=== PATIENT | female | born 2000 | race Caucasian/White ===

== ENCOUNTER 2023-12-27 02:05 | Emergency (ER) | payer OTHER ==
[2023-12-27] MEDS: Lidocaine 1% 50 ML MDV INJECT ONE (03:07)
[2023-12-27] MEDS: Lidocaine 1% 10 ML MDV ONE (03:08)
[2023-12-27] MEDS: Lidocaine 1% 10 ML MDV INJECT ONE (03:08)
== END 2023-12-27 03:16 | disposition home or self-care (01) ==
LOC: JD.ED 02:05
DX: S61.217A Laceration without foreign body of left little finger without damage to nail, initial encounter (principal); W22.8XXA Striking against or struck by other objects, initial encounter
CPT/HCPCS: 12001; 99282; J3490